=== PATIENT | female | born 1960 | race Caucasian/White ===

== ENCOUNTER → 2017-01-08 | Outpatient (CLI) | payer BC, OTHER ==
[~2017-01-08] VITALS: Ht 157.5 cm; Wt 95.3 kg
[~2017-01-08] MED LIST: ATOR1TAB21 PO; FISH1000 PO; GLIM2TA PO; HYDR25TAB PO; IRON65TA PO; LIDOCAINE 2% INJ 100 MG/5 ML SDV (FOR ANES.) As Ordered ONE; METF1000 PO; METO-207 PO; MULT1TAB10 PO; PROPOFOL 200 MG/20 ML VIAL As Ordered ONE
[2017-01-08] MEDS: NS 1,000 ML IV SCH (10:36)
--- NOTE | 2017-01-08 11:01 | ROOR ---
Patient Name: Susannah Seymour Procedure Date: 01/08/2017 10:48 AM Date of : 1960 Age: 56 Room: [facility] Gender: Female Note Status: Finalized Procedure: Upper GI endoscopy + SBB Indications: Iron deficiency anemia Providers: Everton Llamas MD Referring MD: Santa Trivedi MD Requesting Provider: Medicines: Monitored Anesthesia Care Complications: No immediate complications. Procedure: Pre-Anesthesia Assessment: - The heart rate, respiratory rate, oxygen saturations, blood pressure, adequacy of pulmonary ventilation, and response to care were monitored throughout the procedure. The Endoscope was introduced through the mouth, and advanced to the second part of duodenum. The upper GI endoscopy was accomplished without difficulty. The patient tolerated the procedure well. Findings: The Z-line was irregular and was found 40 cm from the incisors. A small hiatal hernia was present. No other significant abnormalities were identified in a careful examination of the stomach. The exam of the duodenum was otherwise normal. Biopsies for histology were taken with a cold forceps in the first portion of the duodenum for evaluation of celiac disease. The exam was otherwise without abnormality. Impression: - Z-line irregular, 40 cm from the incisors. - Small hiatal hernia. - The examination was otherwise normal. - Biopsies were taken with a cold forceps for evaluation of celiac disease. Recommendation: - Discharge patient to home. - Continue present medications. - Await pathology results. - Check Portal Online for Path Results.([email or web address] - Return to referring physician. - The findings and recommendations were discussed with the patient's family. Everton Llamas MD Everton Llamas MD 01/08/2017 11:01:36 AM This report has been signed electronically. Number of Addenda: 0 Note Initiated On: 01/08/2017 10:48 AM Estimated Blood Loss: Estimated blood loss: none.
--- NOTE | 2017-01-08 11:16 | ROOR ---
Patient Name: Susannah Seymour Procedure Date: 01/08/2017 10:49 AM Date of : 1960 Age: 56 Room: [facility] Gender: Female Note Status: Finalized Procedure: Colonoscopy to Cecum Indications: Iron deficiency anemia, Unexplained iron deficiency anemia Providers: Everton Llamas MD Referring MD: Santa Trivedi MD Requesting Provider: Medicines: Monitored Anesthesia Care Complications: No immediate complications. Procedure: Pre-Anesthesia Assessment: - The heart rate, respiratory rate, oxygen saturations, blood pressure, adequacy of pulmonary ventilation, and response to care were monitored throughout the procedure. The Colonoscope was introduced through the anus and advanced to the cecum, identified by appendiceal orifice and ileocecal valve. The colonoscopy was performed without difficulty. The patient tolerated the procedure well. The quality of the bowel preparation was good. Findings: The perianal and digital rectal examinations were normal. Non-bleeding internal hemorrhoids were found during retroflexion. The hemorrhoids were small and Grade I (internal hemorrhoids that do not prolapse). No other significant abnormalities were identified in a careful examination of the remainder of the colon. The exam was otherwise without abnormality on direct and retroflexion views. Impression: - Non-bleeding internal hemorrhoids. - The examination was otherwise normal on direct and retroflexion views. - No specimens collected. - The exam was otherwise normal to the cecum. Recommendation: - Patient has a contact number available for emergencies. The signs and symptoms of potential delayed complications were discussed with the patient. Return to normal activities tomorrow. Written discharge instructions were provided to the patient. - High fiber diet. - Discharge patient to home. - Continue present medications. - Repeat colonoscopy in 10 years for screening purposes. - Return to referring physician. - The findings and recommendations were discussed with the patient's family. Everton Llamas MD Everton Llamas MD 01/08/2017 11:15:54 AM This report has been signed electronically. Number of Addenda: 0 Note Initiated On: 01/08/2017 10:49 AM Estimated Blood Loss: Estimated blood loss: none.
[2017-01-08 11:45] VITALS: BP 122/70
== END ==
LOC: M OPP 10:24
PROVIDERS: ATTEND Internal Medicine Gastroenterology
DX: D50.9 Iron deficiency anemia, unspecified (principal); D64.0 Hereditary sideroblastic anemia; K44.9 Diaphragmatic hernia without obstruction or gangrene; K22.8 Other specified diseases of esophagus; I10 Essential (primary) hypertension; E78.00 Pure hypercholesterolemia, unspecified; E11.9 Type 2 diabetes mellitus without complications; K21.9 Gastro-esophageal reflux disease without esophagitis; E66.9 Obesity, unspecified; R06.83 Snoring; Z79.84 Long term (current) use of oral hypoglycemic drugs; Z79.899 Other long term (current) drug therapy

== ENCOUNTER → 2017-10-12 | Outpatient (REF) | payer OTHER ==
[2017-10-12 14:04] LABS: BACTERIA, URINE NONE SEEN; HYALINE CAST, URINE NONE SEEN /lpf (0-1); MUCUS, URINE SMALL AMOUNT (NEGATIVE); RBC, URINE NONE SEEN /hpf (0-3); SQUAMOUS EPITHELIAL CELL URINE SMALL AMOUNT /hpf (SMALL AMT); WBC, URINE NONE SEEN /hpf (0-3)
[2017-10-12 14:05] LABS: MICROSCOPIC EXAM PERFORMED
== END ==
LOC: M SMT 13:21
DX: N30.90 Cystitis, unspecified without hematuria (principal)

== ENCOUNTER → 2018-07-10 | Outpatient (CLI) | payer BC, OTHER | LOC: M RAD 06:07 | DX: R10.2 Pelvic and perineal pain (principal) | CPT/HCPCS: 76700 ==

== ENCOUNTER → 2023-01-06 | Outpatient (CLI) | payer BC, OTHER ==
[~2023-01-06] MED LIST changes: -GLIM2TA PO; +GLIM2TAB29 PO; +HYDR-3490 PO; -HYDR25TAB PO; -LIDOCAINE 2% INJ 100 MG/5 ML SDV (FOR ANES.) As Ordered ONE; -METF1000 PO; +METF10004 PO; -METO-207 PO; +METO1TAB7 PO; -PROPOFOL 200 MG/20 ML VIAL As Ordered ONE
== END ==
LOC: M EKG 13:14
PROVIDERS: ATTEND Orthopaedic Surgery
DX: Z01.818 Encounter for other preprocedural examination (principal); G56.03 Carpal tunnel syndrome, bilateral upper limbs